=== PATIENT | female | born 1990 | race Caucasian/White ===

== ENCOUNTER → 2019-07-03 | Outpatient (CLI) | payer BC ==
--- NOTE | 2019-07-04 11:06 | US ---
EXAM DESCRIPTION: Soft Tissue,Extremity: ULTRASOUND. CLINICAL HISTORY: 28 years Female MASTODYNIA left breast and axilla. COMPARISON: None Available. TECHNIQUE: Transcutaneous scanning: Davis-scale and Doppler modes. FINDINGS: Typical scan soft tissues and mostly fatty replacement in the upper outer quadrant left breast. No dominant solid mass or distinct cyst. No fluid collection or large calcifications. No reactive lymph nodes. IMPRESSION: No sonographic abnormalities in the left axilla and the upper outer quadrant of the left breast. Recommend patient have diagnostic bilateral digital breast tomosynthesis. Patient currently not enrolled in [facility] breast mammographic screening program. Electronically signed by: Daniel Delgado MD 07/04/2019 11:04 AM CDT
== END ==
LOC: US 13:41
PROVIDERS: ATTEND Family Medicine
DX: N64.4 Mastodynia (principal)